=== PATIENT | male | born 1990 | race Two or more races ===

== ENCOUNTER 2024-06-20 00:34 | Emergency (ER) | payer SELFPAY ==
[~2024-06-20] VITALS: Ht 167.6 cm; Wt 81.8 kg
[2024-06-20 01:00] VITALS: BP 126/88; PULSE 78; RESP 18; TEMP 99.1; O2SAT 97
--- NOTE | 2024-06-20 01:50 | DVH ---
CLINICAL INDICATION: right hand pain/laceration TECHNIQUE: radiographic views of the were obtained. Comparison: None FINDINGS/IMPRESSION: Evidence of laceration in the 1st digit. No osseous or joint abnormality identified with no evidence of fracture or dislocation. Joint spaces are normal. No radiopaque foreign body noted.
[2024-06-20] MEDS ORDERED: IBUP-1456 PO (03:57)
[2024-06-20] MEDS ORDERED: CLIN1CAP70 PO (03:57)
--- NOTE | 2024-06-20 03:57 | ED.PDOC ---
HPI Comments 34 year old male presents to ER with complaints of laceration to right hand x 30 minutes. Patient states he was holding a "kitchen knife" in his left hand cutting up vegetables when the knife slipped and made impact with his right hand and sustained laceration to right hand 30 minutes prior to arrival to ER. He rates his current pain a 10/10 to right hand without radiation and notes he is up to date on his tetanus shot. Patient presents to ER with a 5 cm laceration noted to webspace of right 1st and 2nd fingers with mild bleeding noted and full ROM to all fingers of right hand. Denies numbness/tingling or any further symptoms/complaints Chief Complaint: Laceration Time Seen by MD: 01:14 Primary Care Provider: UNKNOWN Reviewed Notes: Nurses Notes, Medications, Allergies Allergies: Coded Allergies: NO KNOWN ALLERGIES (Unverified , 06/20/24) Home Meds Active Scripts Ibuprofen (Ibuprofen) 800 Mg Tab, 1 TAB PO TID PRN, #30 TAB 0 Refills Prov:RODRI HANLEY 06/20/24 Clindamycin Hcl (Clindamycin Hcl) 300 Mg Cap, 1 CAP PO TID for 7 Days, #21 CAP 0 Refills Prov:RODRI HANLEY 06/20/24 Information Source: Patient Mode of Arrival: Ambulatory Complexity: Intermediate Laceration Length (cm): 5 Skin Type: Irregular Past Medical History PAST MEDICAL HISTORY: Denies Surgical History: Denies all surgeries Family History Family History: Unknown Social History Smoker: Cigarettes, Less Than 1 Pack/Day Alcohol: Denies ETOH Use Drugs: Denies Drug Use Lives In: Home Constitutional: denies: chills, diaphoresis, fatigue, fever, malaise, sweats, weakness, others EENTM: denies: blurred vision, double vision, ear bleeding, ear discharge, ear drainage, ear pain, ear ringing, eye pain, eye redness, hearing loss, mouth pain, mouth swelling, nasal discharge, nose bleeding, nose congestion, nose pain, photophobia, tearing, throat pain, throat swelling, voice changes, others Respiratory: denies: cough, hemoptysis, orthopnea, SOB at rest, shortness of breath, SOB with excertion, stridor, wheezing, others Cardiovascular: denies: chest pain, dizzy spells, diaphoresis, Dyspnea on exertion, edema, irregular heart beat, left arm pain, lightheadedness, palpitations, PND, syncope, others Gastrointestinal: denies: abdomen distended, abdominal pain, blood streaked bowels, constipated, diarrhea, dysphagia, difficulty swallowing, hematemesis, melena, nausea, poor appetite, poor fluid intake, rectal bleeding, rectal pain, vomiting, others Genitourinary: denies: burning, dysuria, flank pain, frequency, hematuria, incontinence, penile discharge, penile sore, pain, testicle pain, testicle swelling, urgency, others Neurological: denies: dizziness, fainting, headache, left sided numbness, left sided weakness, numbness, paresthesia, pre-existing deficit, right sided numbness, right sided weakness, seizure, speech problems, tingling, tremors, weakness, others Musculoskeletal: denies: back pain, gout, joint pain, joint swelling, muscle pain, muscle stiffness, neck pain, others Integumetry: reports: others ( STATED IN HPI) Allergic/Immunocompromised: denies: Difficulty Healing, Frequent Infections, Hives, Itching, others Hematologic/Lymphatic: denies: anemia, blood clots, easy bleeding, easy bruising, swollen glands, others Endocrine: denies: excessive hunger, excessive sweating, excessive thirst, excessive urination, flushing, intolerance to cold, intolerance to heat, unexplained weight gain, unexplained weight loss, others Psychiatric: denies: anxiety, bipolar disorder, depression, hopeless, panic disorder, schizophrenia, sleepless, suicidal, others Physical Exam General Appearance: No Apparent Distress HEENT: PERRL/EOMI Neck: Full Range of Motion, Non-Tender, Normal Respiratory: Chest Non-Tender, Lungs Clear, No Accessory Muscle Use, No Respiratory Distress, Normal Breath Sounds Cardiovascular: No Murmur, No Gallop, Regular Rate/Rhythm Breast Exam: Deferred Gastrointestinal: NOT DONE Genitalia: Deferred Pelvic: Deferred Rectal: Deferred Extremities: Normal capillary refill, Normal range of motion Neurologic: Alert, 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 Was a procedure done?: Yes Sedation Sedation?: No Laceration Repair : Location WEBSPACE OF RIGHT 1ST AND 2ND FINGER Length 5 CM Anesthetic: Lidocaine (1%), Without epi Laceration Repair Prep: Saline (AND PEROXIDE), by Irrigation (WITHOUT ANY SIGNS OF FOREIGN BODY) Laceration Repair Wound Comple: epidermis/dermis repair Laceration Repair: Number of sutures (6 PLACED - PATIENT TOLERATED WELL WITHOUT ANY COMPLICATION), Size (4-0), Nylon, Simple, Non-adherent gauze Informed consent obtained: Yes Risks, benefits, and alternati: Yes Images 1 - 5 CM LACERATION NOTED. SLIGHT TTP/SWELLING/ERYTHEMA/MINIMAL BLEEDING LOCALIZED TO WOUND EDGES. NO TENDON EXPOSURE/FOREIGN BODY/FURTHER SKIN CHANGES NOTED. PATIENT ABLE TO FULLY MOVE ALL FINGERS RIGHT HAND. NO TTP TO RIGHT ANATOMICAL SNUFFBOX NOTED. PULSES INTACT Differential diagnosis Generic Laceration: Fracture, Retained Foriegn Body, Neurovascular Injury, Tendon Injury X-Ray, Labs, Meds, VS Vital Signs Date Time Temp Pulse Resp B/P (MAP) Pulse Ox O2 Delivery O2 Flow Rate FiO2 06/20/24 03:55 Room Air* 0 21 06/20/24 01:00 99.1 78 18 126/88 (101) 97 99.1 PATIENT: NICHOLAS SALCEDO ACCT: [id number] UNIT: [id number] : 1990 LOC: ER ROOM / BED: / AGE / SEX: 34 / M ADM STATUS: REG ER SERVICE 011 ORDERING PHYSICIAN: RODRI HANLEY PROCEDURE(s): RHAN - R HAND 3 VIEW XRAY REASON: right hand pain/laceration ORDER NUMBER(s): [id number], ACCESSION NUMBER(s): [id number] CLINICAL INDICATION: right hand pain/laceration TECHNIQUE: radiographic views of the were obtained. Comparison: None FINDINGS/IMPRESSION: Evidence of laceration in the 1st digit. No osseous or joint abnormality identified with no evidence of fracture or dislocation. Joint spaces are normal. No radiopaque foreign body noted. ATED BY: OLYA PEREYRA MD DICTATED DATE/TIME: 06/20/24 0148 SIGNED BY: OLYA PEREYRA MD SIGNED DATE/TIME: 06/20/24 0148 CC: RIGHT HAND X-RAY REVIEWED ROCEPHIN 1 G IM ORDERED PATIENT NEUROVASCULARLY INTACT WOUND CLEANING PERFORMED AT BEDSIDE WOUND CARE/CLEANING DISCUSSED AND ADVISED RIGHT THUMB SPICA SPLINT APPLIED TO PREVENT WOUND DEHISCENCE ADVISED ON REST/NO STRENUOUS ACTIVITY AND ELEVATION ADVISED TO FOLLOW UP IN TWO DAYS FOR WOUND CHECK ADVISED TO FOLLOW UP IN 10-14 DAYS FOR REMOVAL OF SUTURES ADVISED TO FOLLOW UP WITH PCP IN 1-2 DAYS PATIENT VERBALIZED UNDERSTANDING AND AGREEABLE WITH CURRENT PLAN OF CARE ADVISED TO RETURN TO ER IMMEDIATELY IF SYMPTOMS WORSEN Images Reviewed?: Images reviewed and evaluated by me Time of 1ST Reevaluation: 03:24 Reevaluation 1ST: N/A Patient Education/Counseling: Diagnosis, Treatment, Prognosis, Need For Follow Up Family Education/Counseling: No Family Present Departure 1 Departure Time of Disposition: 03:52 Impression: Primary Impression: Laceration of hand, right Qualified Codes: S61.411A - Laceration without foreign body of right hand, initial encounter Disposition: HOME / SELF CARE / HOMELESS Condition: Stable e-Prescriptions Ibuprofen (Ibuprofen) 800 Mg Tab 1 TAB PO TID PRN, #30 TAB 0 Refills Prov: RODRI HANLEY 06/20/24 Clindamycin Hcl (Clindamycin Hcl) 300 Mg Cap 1 CAP PO TID for 7 Days, #21 CAP 0 Refills Prov: RODRI HANLEY 06/20/24 Discharged With: Friend Critical Care Note Critical Care Time?: No Stability Stability form required: No Heart Score Heart Score: Heart Score Response (Comments) Value History N/A 0 EKG N/A 0 Age N/A 0 Risk Factors N/A 0 Troponin N/A 0 Total 0 RODRI HANLEY Jun 20, 2024 03:57
[2024-06-20] MEDS: cefTRIAXone SOD 1,000 MG VL IM ONE (04:08)
== END 2024-06-20 04:10 | disposition home or self-care (01) ==
LOC: ER 00:34
DX: S61.411A Laceration without foreign body of right hand, initial encounter (principal); F17.210 Nicotine dependence, cigarettes, uncomplicated; W26.0XXA Contact with knife, initial encounter; Y93.89 Activity, other specified; Y92.89 Other specified places as the place of occurrence of the external cause; Y99.8 Other external cause status
CPT/HCPCS: 12002; 73130; 96372; 99283; J0696